=== PATIENT | male | born 1990 | race Caucasian/White ===

== ENCOUNTER 2019-10-31 01:25 | Inpatient (IN) | payer SELFPAY ==
[2019-10-31] VITALS (7 sets, daily range): BP systolic 125–148; BP diastolic 67–94; PULSE 111–131; RESP 14–19; TEMP 36.5–36.9; O2SAT 96–99; BMI 29.5
--- NOTE | 2019-10-31 01:35 | W.ED.PSYCH ---
HPI - Psych General: Chief Complaint: Psychiatric Symptoms Stated Complaint: SI Time Seen by Provider: 10/31/19 01:37 Source: patient and police Limitations: no limitations History of Present Illness: HPI Narrative: Patient is a 29-year-old male who states he has been drinking alcohol tonight and was in an argument with his . Per police officers people at the scene and stated that he made roundabout statements about possibly killing himself. Patient here is adamantly he suicidality or homicidality. Patient has no history of suicidal attempts in the past. Per bystanders at the scene patient had grabbed a gun and had wrestled the gun away from him. They are very concerned that he was going to try to kill himself. Associated symptoms: Reports depression Review of Systems Const: Denies: fever, chills, body aches or change in appetite Eyes: Denies: blurry vision or eye discomfort ENMT: Denies: throat pain or dental pain Card: Denies: chest pain Resp: Denies: shortness of breath GI: Denies: abdominal pain, nausea, vomiting or diarrhea : Denies: painful urination Musc: Denies: neck pain or back pain Skin/Breast: Denies: rash Neuro: Denies: headache Psych: Reports: depression Tunde/Lymph: Denies: easy bruising All/Imm: Denies: hives PFSH ED PFSH: Social History Smoking and tobacco status: current every day smoker Physical Exam Const: COMMON NORMALS: no apparent distress, oriented x3 and healthy appearing HENMT: COMMON NORMALS: normocephalic and head/scalp atraumatic HEAD & SCALP: normocephalic and atraumatic Eye: COMMON NORMALS: PERRL and EOMs intact bilaterally PUPIL: Yes PERRL Neck/C-Spine: COMMON NORMALS: full ROM and supple Chest: COMMONS NORMALS: inspection of chest normal and palpation of chest normal Resp: COMMON NORMALS: normal respiratory effort, no retractions, no use of accessory muscles and clear to auscultation bilaterally AUSCULTATION: clear to auscultation bilaterally Cardio: COMMON NORMALS: regular rate, regular rhythm and no murmurs RATE: regular rate RHYTHM: regular rhythm GI: COMMON NORMALS: normal to inspection, nondistended, normoactive bowel sounds, soft to palpation, non-tender and no masses PALPATION: Yes soft Extremity: COMMON NORMALS: normal to inspection and full ROM Neuro: COMMON NORMALS: oriented x3, moves all extremities and no focal motor deficits Psych: ATTITUDE: Yes uncooperative and Yes agitated MOOD & AFFECT: Yes irritable Skin: COMMON NORMALS: no rashes or lesions noted and no wounds GENERAL SKIN EXAM: no rashes or lesions noted MDM - Psych MDM Narrative: Medical decision making narrative: Patient presents here with suicidal ideation. Patient placed under 96-hour hold and is medically cleared I spoke to Dr. Bennett and will admit the psychiatric unit. Lab Data: Labs: Lab Results 10/31/19 10/31/19 Range/Units 02:33 02:33 WBC 13.2 H (4.0-10.0) 10^3/ uL RBC 5.00 (4.1-5.3) 10^6/u L Hgb 16.1 (11.7-16.6) g/dL Hct 47.6 (42.0-52.0) % MCV 95.2 H (80-94) fL MCH 32.2 (28.0-34.0) pg MCHC 33.8 (30.0-36.0) g/dL RDW 13.6 (12.1-15.1) % Plt Count 355 (130-400) 10^3/c mm MPV 10.0 (7.4-10.4) fL Neut % (Auto) 62.8 % Lymph % (Auto) 27.0 % Baxter % (Auto) 7.9 % Eos % (Auto) 1.1 % Baso % (Auto) 0.8 % Neut # (Auto) 8.3 H (1.8-7.7) 10^3/u L Lymph # (Auto) 3.6 (0.8-4.8) 10^3/u L Baxter # (Auto) 1.1 H (0.2-0.9) 10^3/u L Eos # (Auto) 0.1 (0.0-0.8) 10^3/u L Baso # (Auto) 0.1 (0.0-0.1) 10^3/u L Nucleated RBC % (a uto) 0 % Nucleated RBCs # 0.0 /100WBC Sodium 141 (136-145) mmol/L Potassium 3.5 (3.5-5.1) mmol/L Chloride 102 (98-107) mmol/L Carbon Dioxide 24 (22-29) mmol/L Anion Gap 18.5 (5-19) BUN 7 (6-20) mg/dL Creatinine 0.9 (0.7-1.2) mg/dL GFR Calculation 99.1 (90-130) mL/min Glucose 102 (65-115) mg/dL Calculated Osmolal ity 288 (285-295) mOsm/k g Calcium 9.0 (8.5-10.5) mg/dL Total Bilirubin 0.3 (0.15-1.2) mg/dL AST 17 (0-40) U/L ALT 20 (0-41) U/L Alkaline Phosphata se 81 (40-130) IU/L Total Protein 6.7 (6.6-8.7) g/dL Albumin 4.7 (3.5-5.2) g/dL Globulin 2.0 (1.3-4.6) g/dL Salicylates < 0.3 L (3-10) mg/dL Acetaminophen < 5.0 L (10-30) ug/mL Ethyl Alcohol 74 H (0-10) mg/dL Discharge Plan Discharge Patient Disposition: Admitted As Inpatient Clinical Impression: Suicidal ideation Condition: Stable Coding Level of Care Code ED Explosive Operator Bomb for Alexg Fwd Exam Comprehensive
--- NOTE | 2019-10-31 02:00 | PC.NURSE ---
PATIENT STATES THAT HE WAS AT A FRIENDS HOUSE AND WAS DRINKING FEW BEERS. PATIENT STATES THAT THE FRIENDS TOOK HIS CAR [place] SO THE PATIENT WAS WANTING TO WALK HOME SO HE WENT TO GRAB HIS GUN TO GO HOME AND THE FRIENDS CALLED THE POLICE. PATIENT DENIES WANTING TO HURT HIMSELF TO NURSE IN THE ED.
--- NOTE | 2019-10-31 02:11 | PC.NURSE ---
Pt not clear on what medications he takes.
[2019-10-31] MEDS: nicotine 21 mg Patch 1 PATCH TRANSDERMA (02:27)
[2019-10-31 02:43] LABS: Basophils # 0.1 10^3/uL (0.0-0.1); Basophils % 0.8 %; Eosinophils # 0.1 10^3/uL (0.0-0.8); Eosinophils % 1.1 %; Hematocrit 47.6 % (42.0-52.0); Hemoglobin 16.1 g/dL (11.7-16.6); Lymphocytes # 3.6 10^3/uL (0.8-4.8); Mean Corpuscular HGB Conc 33.8 g/dL (30.0-36.0); Mean Corpuscular Hemoglobin 32.2 pg (28.0-34.0); Mean Corpuscular Volume 95.2 fL (80-94); Monocytes # 1.1 10^3/uL (0.2-0.9); Monocytes % 7.9 %; Neutrophils # 8.3 10^3/uL (1.8-7.7); Neutrophils % 62.8 %; Nucleated Red Blood Cells % 0 %; Platelet Count 355 10^3/cmm (130-400); Red Cell Distribution Width 13.6 % (12.1-15.1); White Blood Count 13.2 10^3/uL (4.0-10.0)
[2019-10-31 02:56] LABS: Alanine Aminotransferase 20 U/L (0-41); Albumin Level 4.7 g/dL (3.5-5.2); Alcohol Level 74 mg/dL (0-10); Alkaline Phosphatase 81 IU/L (40-130); Anion Gap 18.5 (5-19); Aspartate Amino Transferase 17 U/L (0-40); Blood Urea Nitrogen 7 mg/dL (6-20); Carbon Dioxide 24 mmol/L (22-29); Chloride 102 mmol/L (98-107); Glomerular Filtration Rate 99.1 mL/min (90-130); Glucose 102 mg/dL (65-115); Osmolality Calculated 288 mOsm/kg (285-295); Potassium 3.5 mmol/L (3.5-5.1); Sodium 141 mmol/L (136-145); Total Bilirubin 0.3 mg/dL (0.15-1.2); Total Protein 6.7 g/dL (6.6-8.7)
[2019-10-31 02:57] LABS: Acetaminophen < 5.0 ug/mL (10-30); Salicylate < 0.3 mg/dL (3-10)
--- NOTE | 2019-10-31 14:45 | PM.NHP ---
Providers/Chief Complaint Admitting Physician: Arash Bennett MD Chief Complaint: SI HPI NPU History of Present Illness Chief complaint: My friends were worried about me and they overreacted. History of present illness:Andre Noguera is a 29 year old male who is actively being treated for clinical depression. The patient tells a story which is generally consistent with the affidavit for 96-hour involuntary commitment in his chart. Apparently he and his girlfriend had been socializing with a couple that they have known for quite some time. Everybody was familiar with each other. The patient and his girlfriend got into an argument of some kind. He became frustrated. He has a history of making rash statements when irritated. He claims that at no time that he ever mentioned ending his own life. However, problems amplified when his friends took his car keys away because they believed he was too inebriated to drink. Laboratory Tests 10/31/19 02:33 Ethyl Alcohol 74 H He decided to walk 3 miles to his home if he could not drive. He went to his truck to get his things which included a weapon. He says that he often carries a weapon. He says that [place] can be a dangerous place to walk. When his friends discovered that he was carrying a weapon, they wrestled it away from him. Police were called. And he was brought to the emergency room out of suspicion that he may have been intending to commit suicide. The patient denies any intent at any time to suicide. He had no thoughts of ending anyone else's life. He is not angry at his friends or his girlfriend at this time. He otherwise has good hedonic capacity. He has things that he is planning to do in the future. He does report some irritability. However his sleep is good. He denies being depressed. There is no history of signs that would indicate a manic episode. He does not estimate how much beer he drank last night. He said that in the past, he did have some difficulty with alcohol intake as he was drinking a sixpack per night. However now he drinks approximately 2 sixpacks per month. He denies any history of personal legal or employment problems due to his alcohol. He has no history of blackouts. He denies any history of friends or family telling him that he is drinking too much. He denies any history of symptoms or signs of withdrawal. He is currently taking Trintellix 10 mg daily. He has been taking this for 6 months with significant benefit. The only side effect that he reports is possible some sexual difficulty. Mental health history: He has been in therapy in the past. He had to quit because of lack of access and financial issues. He has never been hospitalized and never seen a psychiatrist. Is being prescribed by his primary care physician. He is comfortable with its effect and is not interested in making a change at this time. We did however educate him significantly regarding potential benefits and side effects of medications. He believes that this medication is a mood stabilizer . He was educated with regard to diagnoses and the nature of Trintellix as a medication. 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 Legal history: there is no arrests or convictions in the [place] public record Past medical history: Allergies: None Medications: Trintellix 10 mg daily Surgeries: None Mental Status Exam: Appearance: hygiene is fair; no gross neurological deficits., gait is unremarkable; AIMS=0 Speech: Speech is of normal rate and rhythm and easily understood. Thought processes: Thought processes are abstract. Judgment is adequate for safety. Associations: intact Psychotic processes: There is no indication of guarding or paranoia. There is no attention to the internal stimuli. Auditory and visual hallucinations are denied. Judgment: Insight is good. Problem solving skills are adequate for safety. Orientation: The patient is oriented to person, place time and situation. Memory: no deficits noted in immediate, intermediate, or remote spheres. Attention: The patient is alert and interpersonally engaged. Language: Verbalizations are coherent. Fund of knowledge: Fund of knowledge is good. Affect/Mood: Affect is consistent with a euthymic mood. he denied suicidal ideation Affective range appropriate. Psychosis: perception unimpaired except through cognitive distortion; reality testing intact. Diagnoses: Alcohol intoxication?resolved Adjustment disorder with disturbance of mood?resolved Treatment plan: The patient agrees that he is having significant sources of stress in his life with which he is not dealing well. He feels that he does need to go back and see his therapist and we explored options which are limited in the time of these pandemic restrictions. He feels that his current medication is effective and does not want to make a change. He is adamant that at no time has he had suicidal or homicidal thoughts. He feels that his friends are just acting in his best interest to be safe. He denies that he currently has an alcohol problem and does not feel that he needs any participation in an alcohol abstention group. He is not felt to be an imminent danger to self or others. He was permitted to be discharged home with no medication changes. Meds NPU Allergies Allergy/AdvReac Type Severity Reaction Status Date / Time No Known Drug Allergies Allergy Unknown Verified 10/31/19 01:39 PFSH NPU PFSH: Social History Smoking and tobacco status: current every day smoker Vitals/I&O/Wt Last Vital Signs Temp 98.2 F 10/31/19 13:18 Pulse 111 H 10/31/19 13:18 Resp 17 10/31/19 13:18 BP 125/67 10/31/19 13:18 Pulse Ox 97 10/31/19 13:18 Weight last 48 hrs Weight 90.718 kg Data NPU : 10/31/19 02:33 10/31/19 02:33 Involuntary Hold Information 96 Hour Hold: 96 Hour Involuntary Admission: Yes 96 Hour Hold Ending Date: 11/06/19 96 Hour Hold Ending Time: 03:01 Attestations NPU Medical Necessity Statement*: Patient was sent home from the hospital after the evaluation. Coding Level of Care Code Acute Custodial Maintenance Worker for Etelvina Courtney
--- NOTE | 2019-10-31 15:29 | PM.NDC ---
Reason for Visit Reason for Visit: Reason For Visit: SI Brief History: Chief complaint: My friends were worried about me and they overreacted. History of present illness:Andre Noguera is a 29 year old male who is actively being treated for clinical depression. The patient tells a story which is generally consistent with the affidavit for 96-hour involuntary commitment in his chart. Apparently he and his girlfriend had been socializing with a couple that they have known for quite some time. Everybody was familiar with each other. The patient and his girlfriend got into an argument of some kind. He became frustrated. He has a history of making rash statements when irritated. He claims that at no time that he ever mentioned ending his own life. However, problems amplified when his friends took his car keys away because they believed he was too inebriated to drink. Laboratory Tests 10/31/19 02:33 Ethyl Alcohol 74 H He decided to walk 3 miles to his home if he could not drive. He went to his truck to get his things which included a weapon. He says that he often carries a weapon. He says that [place] can be a dangerous place to walk. When his friends discovered that he was carrying a weapon, they wrestled it away from him. Police were called. And he was brought to the emergency room out of suspicion that he may have been intending to commit suicide. The patient denies any intent at any time to suicide. He had no thoughts of ending anyone else's life. He is not angry at his friends or his girlfriend at this time. He otherwise has good hedonic capacity. He has things that he is planning to do in the future. He does report some irritability. However his sleep is good. He denies being depressed. There is no history of signs that would indicate a manic episode. He does not estimate how much beer he drank last night. He said that in the past, he did have some difficulty with alcohol intake as he was drinking a sixpack per night. However now he drinks approximately 2 sixpacks per month. He denies any history of personal legal or employment problems due to his alcohol. He has no history of blackouts. He denies any history of friends or family telling him that he is drinking too much. He denies any history of symptoms or signs of withdrawal. He is currently taking Trintellix 10 mg daily. He has been taking this for 6 months with significant benefit. The only side effect that he reports is possible some sexual difficulty. Mental health history: He has been in therapy in the past. He had to quit because of lack of access and financial issues. He has never been hospitalized and never seen a psychiatrist. Is being prescribed by his primary care physician. He is comfortable with its effect and is not interested in making a change at this time. We did however educate him significantly regarding potential benefits and side effects of medications. He believes that this medication is a mood stabilizer . He was educated with regard to diagnoses and the nature of Trintellix as a medication. 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 Legal history: there is no arrests or convictions in the [place] public record Past medical history: Allergies: None Medications: Trintellix 10 mg daily Surgeries: None Mental Status Exam: Appearance: hygiene is fair; no gross neurological deficits., gait is unremarkable; AIMS=0 Speech: Speech is of normal rate and rhythm and easily understood. Thought processes: Thought processes are abstract. Judgment is adequate for safety. Associations: intact Psychotic processes: There is no indication of guarding or paranoia. There is no attention to the internal stimuli. Auditory and visual hallucinations are denied. Judgment: Insight is good. Problem solving skills are adequate for safety. Orientation: The patient is oriented to person, place time and situation. Memory: no deficits noted in immediate, intermediate, or remote spheres. Attention: The patient is alert and interpersonally engaged. Language: Verbalizations are coherent. Fund of knowledge: Fund of knowledge is good. Affect/Mood: Affect is consistent with a euthymic mood. he denied suicidal ideation Affective range appropriate. Psychosis: perception unimpaired except through cognitive distortion; reality testing intact. Diagnoses: Alcohol intoxication?resolved Adjustment disorder with disturbance of mood?resolved Treatment plan: The patient agrees that he is having significant sources of stress in his life with which he is not dealing well. He feels that he does need to go back and see his therapist and we explored options which are limited in the time of these pandemic restrictions. He feels that his current medication is effective and does not want to make a change. He is adamant that at no time has he had suicidal or homicidal thoughts. He feels that his friends are just acting in his best interest to be safe. He denies that he currently has an alcohol problem and does not feel that he needs any participation in an alcohol abstention group. He is not felt to be an imminent danger to self or others. He was permitted to be discharged home with no medication changes. Involuntary Hold Information 96 Hour Hold: 96 Hour Involuntary Admission: Yes 96 Hour Hold Ending Date: 11/06/19 96 Hour Hold Ending Time: 03:01 Mental Status Exam MSE Comments: Discharge Mental Status Exam: Appearance: hygiene is good; no gross neurological deficits., gait is unremarkable; AIMS=0 Speech: Speech is of normal rate and rhythm and easily understood. Thought processes: Thought processes are abstract. Judgment is adequate for safety. Associations: intact Psychotic processes: There is no indication of guarding or paranoia. There is no attention to the internal stimuli. Auditory and visual hallucinations are denied. Judgment: Insight is fair. Problem solving skills are adequate for safety. Orientation: The patient is oriented to person, place time and situation. Memory: no deficits noted in immediate, intermediate, or remote spheres. Attention: The patient is alert and interpersonally engaged. Language: Verbalizations are coherent. Fund of knowledge: Fund of knowledge is adequate. Affect/Mood: Affect is consistent with a euthymic mood. denied suicidal ideation Affective range is appropriate. Psychosis: perception unimpaired except through cognitive distortion; reality testing intact. Discharge Data Data Completed and Pending: Labs from last 24 hours 10/31/19 10/31/19 02:33 02:33 WBC 13.2 H RBC 5.00 Hgb 16.1 Hct 47.6 MCV 95.2 H MCH 32.2 MCHC 33.8 RDW 13.6 Plt Count 355 MPV 10.0 Neut % (Auto) 62.8 Lymph % (Auto) 27.0 Morgan % (Auto) 7.9 Eos % (Auto) 1.1 Baso % (Auto) 0.8 Neut # (Auto) 8.3 H Lymph # (Auto) 3.6 Morgan # (Auto) 1.1 H Eos # (Auto) 0.1 Baso # (Auto) 0.1 Nucleated RBC % (a uto) 0 Nucleated RBCs # 0.0 Sodium 141 Potassium 3.5 Chloride 102 Carbon Dioxide 24 Anion Gap 18.5 BUN 7 Creatinine 0.9 GFR Calculation 99.1 Glucose 102 Calculated Osmolal ity 288 Calcium 9.0 Total Bilirubin 0.3 AST 17 ALT 20 Alkaline Phosphata se 81 Total Protein 6.7 Albumin 4.7 Globulin 2.0 Salicylates < 0.3 L Acetaminophen < 5.0 L Ethyl Alcohol 74 H Vitals: Last Vital Signs Temp 98.2 F 10/31/19 13:18 Pulse 111 H 10/31/19 13:18 Resp 17 10/31/19 13:18 BP 125/67 10/31/19 13:18 Pulse Ox 97 10/31/19 13:18 Discharge Plan Discharge Patient Disposition: Home, Self-Care Condition: Stable Discharge Orders: Discharge Order (Routine); Ordered 10/31/19 Ordered By: Arash Bennett Referrals: [facility] [Other] - 1-3 days (re-establish care with Masoud Escalera for individual therapy. You are to email please list your name, date of and good phone number you will get consent form via email. Once you fill it out and you sign it, you will need to email it back to them. After you do that, you will get an appointment. ) Discharge Date/Time: 10/31/19 14:38 Discharge Attestations NPU Time Spent in Discharge Care*: less than 30 min Coding Level of Care Code Acute Carrier Packer for Etelvina Courtney
== END 2019-10-31 14:38 | disposition home or self-care (01) | DRG 897 ==
LOC: ER 03:03 → NP 03:32
PROVIDERS: Admitting Provider Psychiatry & Neurology Psychiatry; Emergency Provider Emergency Medicine; Visit Provider Psychiatry & Neurology Psychiatry
DX: F10.129 Alcohol abuse with intoxication, unspecified (principal); F43.25 Adjustment disorder with mixed disturbance of emotions and conduct; F17.210 Nicotine dependence, cigarettes, uncomplicated
CPT/HCPCS: 12345; 80053; 80307; 85025; 99284

== ENCOUNTER 2020-06-09 10:34 | Emergency (ER) | payer SELFPAY ==
[2020-06-09 10:35] VITALS: BMI 26.6
[2020-06-09] MEDS: EPINEPHrine 0.1 mg/mL SYR 10 mL 1 MG IVP ×16 (10:35→11:12)
[2020-06-09] MEDS: sodium chloride 0.9% 50 ML 100 ML IV (10:57)
[2020-06-09] MEDS: sodium chloride 0.9% 1,000 ML 999 ML IV (11:01)
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
--- NOTE | 2020-06-09 13:15 | PC.NURSE ---
Pt arrived to ED at 1033 with CPR in progress, IGel in place with BVM by EMS. Pt transferred to room bed, placed on Zoll monitor, intubated at [address] Huertas with a 8.0 tube. See Code flowsheet for times of med administrations and pulse checks. Emergent blood x2 units given at bedside. Unit #[id number] started at 1047, infusion completed at 1056, flushed with saline. 2nd unit of blood started at 1100, unit #[id number]. Unit #2 completed at 1111. Chest tube inserted to left chest, 32 gambian at 1045, placed to suction. Copious amounts of blood expelled from chest tube. Family arrived at approx 1105. TOD called at 1113. Knitting Machine Fixer and MTS notified. Pt family unable to make a decision regarding MTS at this time, ice placed on pt eyes, head of bed elevated at approx 1240. Pt cleaned up, all tubes removed and covered with white sheet at 1245. Pt belongings bagged up for family at that time. Pt had a partial upper plate that was removed, a cigarette system designer, a [place] ring with multiple keys, a black wallet with pt ID, multiple credit cards, $450 in lara and $3.15 in change counted and verified with Radha Storye RN. Family notified and belongings sent with family.
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
== END 2020-06-09 14:26 | disposition expired ==
LOC: ER 12:09
PROVIDERS: Emergency Provider Family Medicine
DX: S21.132A Puncture wound without foreign body of left front wall of thorax without penetration into thoracic cavity, initial encounter (principal); F17.210 Nicotine dependence, cigarettes, uncomplicated
CPT/HCPCS: 12345; 31500; 32551; 86900; 86920; 96374; 96375; 96376; 99282; 99291; J0171; J7030; P9016